=== PATIENT | male | born 1970 | race Caucasian/White ===

== ENCOUNTER 2016-11-29 07:07 | Emergency (ER) | payer OTHER ==
[~2016-11-29] VITALS: Ht 182.9 cm; Wt 95.3 kg
[~2016-11-29 07:07] MED LIST: IBUP-1027 PO
--- NOTE | 2016-11-29 07:34 | PHYS DOC ---
Past Medical History Past Medical History: Anxiety, Depression, IBS, Other Additional Past Medical Histor: undescended testicle Past Surgical History: Appendectomy, Cholecystectomy, Other Additional Past Surgical Histo: ACL and meniscus repair right knee, rt testicle removed, vasectomy Alcohol Use: Occasionally Additional Information: beer on the weekends Drug Use: None Adult General Chief Complaint Chief Complaint: TESTICULAR PAIN OR INJURY HPI HPI Patient is a 46 year old male with history of anxiety and depression who presents with left testicular pain that began one and a half months ago. Patient states he was seen by his PCP last week and was put on Levaquin. Patient states the PCP told them if the symptoms don't improve he needs and an ultrasound which was scheduled for next week on Saturday, he states he can not wait until then. Patient denies any injury. He states he had his right testicle removed when he was young because it did not descend. Patient denies any urgency frequency or dysuria. Denies any hematuria. Denies any trouble voiding. Review of Systems Review of Systems Constitutional: Denies fever or chills [] Eyes: Denies change in visual acuity, redness, or eye pain [] GI: Denies abdominal pain, nausea, vomiting, bloody stools or diarrhea [] : Left testicular pain Musculoskeletal: Denies back pain or joint pain [] Integument: Denies rash or skin lesions [] Neurologic: Denies headache, focal weakness or sensory changes [] Endocrine: Denies polyuria or polydipsia [] Allergies Allergies Allergies Coded Allergies Type Severity Reaction Last Updated Verified No Known Drug Allergies 10/02/15 No Physical Exam Physical Exam Constitutional: Well developed, well nourished, no acute distress, non-toxic appearance. [] HENT: Normocephalic, atraumatic, bilateral external ears normal, oropharynx moist, no oral exudates, nose normal. [] Eyes: PERRLA, EOMI, conjunctiva normal, no discharge. [] Abdomen: Bowel sounds normal, soft, no tenderness, no masses, no pulsatile masses. [] Male Patient is missing the right testicle. No obvious swelling on scrotal area No redness on the left testicle No tenderness on palpation of the left testicle. No obvious masses noted on exam. No inguinal hernias noted on exam. Skin: Warm, dry, no erythema, no rash. [] Back: No tenderness, no CVA tenderness. [] Extremities: No tenderness, no cyanosis, no clubbing, ROM intact, no edema. [] Neurologic: Alert and oriented X 3, normal motor function, normal sensory function, no focal deficits noted. [] Psychologic: Affect normal, judgement normal, mood normal. [] Current Patient Data Vital Signs Vital Signs Date Time Temp Pulse Resp B/P (MAP) Pulse Ox O2 Delivery O2 Flow Rate FiO2 11/29/16 08:35 72 20 138/78 (98) 97 Room Air 11/29/16 07:16 97.8 97.8 Lab Values Laboratory Tests Test 11/29/16 07:20 Urine Collection Type Unknown Urine Color Yellow Urine Clarity Clear Urine pH 5.5 Urine Specific [place] 1.020 Urine Protein Negative mg/dL (NEG-TRACE) Urine Glucose (UA) Negative mg/dL (NEG) Urine Ketones (Stick) Negative mg/dL (NEG) Urine Blood Negative (NEG) Urine Nitrite Negative (NEG) Urine Bilirubin Negative (NEG) Urine Urobilinogen Dipstick 0.2 mg/dL (0.2 mg/dL) Urine Leukocyte Esterase Negative (NEG) Urine RBC 0 /HPF (0-2) Urine WBC 0 /HPF (0-4) Urine Squamous Epithelial Cells Few /LPF Urine Bacteria 0 /HPF (0-FEW) Urine Mucus Marked /LPF EKG EKG [] Radiology/Procedures Radiology/Procedures Testicular ultrasound interpreted by radiologist is negative for any acute findings, there is a left epididymal septated cyst 2.0 x 1.4 x 1.8 cm. There is also left testicular cyst 0.3 x 0.4 cm. [] Course & Med Decision Making Course & Med Decision Making Pertinent Labs and Imaging studies reviewed. (See chart for details) Patient is in the ED complaining of left testicular pain that began one and a half months ago. He is currently on Levaquin which he got from his PCP last week. He was scheduled for an outpatient testicular ultrasound next Saturday but states he cannot wait until then. Urine analysis is negative for infection Testicular ultrasound interpreted by radiologist is negative for any acute findings, there is a left epididymal septated cyst 2.0 x 1.4 x 1.8 cm. There is also left testicular cyst 0.3 x 0.4 cm. D/C with instructions to follow up with Dr. Obando and PCP next week. Provided return precautions and discharged in stable condition. Dragon Disclaimer Dragon Disclaimer This electronic medical record was generated, in whole or in part, using a voice recognition dictation system. Departure Departure Impression: Primary Impression: Testicular cyst Disposition: HOME, SELF-CARE Condition: STABLE Referrals: ANGEL MAURO MD (PCP) JENNIFER OBANDO MD Follow-up with the provided urologist next week as well your primary care doctor Patient Instructions: Testicular Masses Additional Instructions: Your ultrasound shows you have testicular cysts. We recommend you follow-up with the provided urologist as well as primary care doctor next week. Take over- the-counter pain relievers as needed. Come back to the emergency room at any point symptoms worsen especially if you start having difficulty voiding. PAOLO HARTMAN PARA MACHINE OPERATOR November 29, 2016 07:34
[2016-11-29 07:38] LABS: BILIRUBIN,URINE NEGATIVE (NEG); GLUCOSE,URINE NEGATIVE (NEG); NITRITE,URINE NEGATIVE (NEG); PH,URINE 5.5; PROTEIN,URINE NEGATIVE (NEG-TRACE); UROBILINOGEN,URINE 0.2 mg/dL (0.2 mg/dL)
[2016-11-29 08:04] LABS: BACTERIA,URINE 0 /HPF (0-FEW); RBC,URINE 0 /HPF (0-2); SQUAMOUS EPITHELIAL CELL,UR FEW /LPF; WBC,URINE 0 /HPF (0-4)
[2016-11-29 09:25] VITALS: BP 127/78
--- NOTE | 2016-11-29 12:56 | RAD ---
Jose Mason Procedure: Testicle Sonogram Clinical information: Left scrotal pain, history of right testicle removal several years ago Date of service: 11/29/16 .Comparison: None available Technique: Real-time grayscale, color-flow, duplex Doppler and spectral analysis of the scrotal contents was performed and images are obtained. Findings: The right testicle is surgically absent as per the given history. The left testicles demonstrate normal size, contour and echogenicity and measures 2.6 x 4.0 cm . There is a small 0.3 x 0.4 x 0.3 cm cyst in the mid left testicle. The left epididymis demonstrate normal size, contour and echogenicity and measures 3.0 cm. There is normal vascularity to the left testis and epididymis. There is a 2.0 x 1.4 x 1.8 cm somewhat septated left epididymal cyst. There is no evidence of a hydrocele. The scrotal soft tissues are unremarkable. Impression: 1. Status post right orchiectomy 2. Somewhat septated 2.0 x 1.4 x 1.8 cm left epididymal cyst with a tiny 0.3 x 0.4 x 0.3 cm cyst in the left mid testicle. MTDD
== END 2016-11-29 09:27 | disposition home or self-care (01) ==
LOC: ER 07:07
DX: N44.2 Benign cyst of testis (principal); F41.9 Anxiety disorder, unspecified; F32.9 Major depressive disorder, single episode, unspecified; Z90.49 Acquired absence of other specified parts of digestive tract; Z98.52 Vasectomy status
CPT/HCPCS: 76870; 81001; 99285-25